=== PATIENT | female | born 1975 | race Caucasian/White ===

== ENCOUNTER → 2023-12-24 11:21 | Outpatient (REF) | payer OTHER, SELFPAY | LOC: WDC 11:21 | PROVIDERS: ATTENDING PHYSICIAN Family Medicine | DX: Z12.31 Encounter for screening mammogram for malignant neoplasm of breast (principal) | CPT/HCPCS: 77063; 77067 ==

== ENCOUNTER → 2025-01-03 16:28 | Outpatient (REF) | payer OTHER, SELFPAY | LOC: WDC 16:28 | PROVIDERS: ATTENDING PHYSICIAN Obstetrics & Gynecology Gynecology; FAMILY PHYSICIAN Family Medicine | DX: Z12.31 Encounter for screening mammogram for malignant neoplasm of breast (principal); Z12.39 Encounter for other screening for malignant neoplasm of breast | CPT/HCPCS: 77063; 77067 ==